=== PATIENT | male | born 1985 | race Two or more races ===

== ENCOUNTER 2016-11-04 20:02 | Emergency (ER) | payer OTHER ==
[2016-11-04 20:11] VITALS: BP 94/56; PULSE 80; TEMP 98.3; BMI 25.1
[2016-11-04] MEDS ORDERED: METHOCARBAMOL 500 MG TABLET PO ONE (20:42)
[2016-11-04] MEDS ORDERED: IBUPROFEN 600 MG TABLET (FP) PO ONE ×2 (20:42→21:06)
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
[2016-11-04] MEDS ORDERED: METHOCARBAMOL 500 MG TABLET ONE (21:06)
== END 2016-11-04 23:03 | disposition home or self-care (01) ==
LOC: JER 20:02
DX: S13.4XXA Sprain of ligaments of cervical spine, initial encounter (principal); M25.552 Pain in left hip; V43.52XA Car driver injured in collision with other type car in traffic accident, initial encounter; Y92.414 Local residential or business street as the place of occurrence of the external cause; Y93.89 Activity, other specified
CPT/HCPCS: 70450-TC; 72125-TC; 72131-TC; 99283-25

== ENCOUNTER 2016-12-24 17:38 | Emergency (ER) | payer SELFPAY ==
[2016-12-24 17:51] VITALS: BP 138/76; PULSE 85; TEMP 98; BMI 24.4
--- NOTE | 2016-12-24 18:04 | PDOC ---
History of Present Illness - General Chief Complaint: Urinary Problem Stated Complaint: PAIN, ACUTE Time Seen by Provider: 12/24/16 17:58 History Source: Patient Exam Limitations: No Limitations Past History - Travel Traveled outside of the country in the last 30 days: No Close contact w/someone who was outside of country & ill: No - Past Medical History Allergies/Adverse Reactions: Allergies Allergy/AdvReac Type Severity Reaction Status Date / Time clindamycin Allergy Verified 12/24/16 17:51 Home Medications: Ambulatory Orders NK [No Known Home Medication] 11/04/16 Asthma: Yes Suicide Attempt (Hx): No - Psycho/Social/Smoking Cessation Hx Anxiety: No Suicidal Ideation: No Smoking Status: No Smoking History: Never smoked Have you smoked in the past 12 months: No Number of Cigarettes Smoked Daily: 3 Information on smoking cessation initiated: No 'Breaking Loose' booklet given: 04/19/14 Hx Alcohol Use: No Drug/Substance Use Hx: Yes (marijuana) Substance Use Type: None Review of Systems - Review of Systems Able to Perform ROS?: Yes Is the patient limited Luxem[place]ish proficient: No *Physical Exam - Vital Signs Last Vital Signs Temp Pulse Resp BP Pulse Ox 98.0 F 85 18 138/76 100 12/24/16 17:44 12/24/16 17:44 12/24/16 17:44 12/24/16 17:44 12/24/16 17:44
[2016-12-24] MEDS ORDERED: AZITHROMYCIN 1 GM PACKET PO ONE (18:22)
[2016-12-24] MEDS ORDERED: AZITHROMYCIN 1 GM PACKET ONE (18:23)
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
[2016-12-26 09:22] LABS: HIV 1 & 2 AB NEGATIVE; HIV 1 AGp24 NEGATIVE
== END 2016-12-24 18:46 | disposition home or self-care (01) ==
LOC: JERFT 17:38
DX: Z20.2 Contact with and (suspected) exposure to infections with a predominantly sexual mode of transmission (principal)
CPT/HCPCS: 36415; 86593; 87389; 87491; 87591; 99281-25

== ENCOUNTER 2017-06-27 11:18 | Emergency (ER) | payer SELFPAY ==
[2017-06-27 11:25] VITALS: BP 125/70; PULSE 85; BMI 26.3
--- NOTE | 2017-06-27 12:16 | PDOC ---
History of Present Illness - General Chief Complaint: Pain Stated Complaint: NAUSEA/VOMITING Time Seen by Provider: 06/27/17 12:10 - History of Present Illness Initial Comments: 06/27/17 12:47 Mr. Oliveros is a 32 yo male w/ no significant pmh who presents to the Emergency Room complaining of a 2 day history of nausea, vomiting, diarrhea, and abdominal pain. He reports this started 2 days ago when he woke up and began with a small episode of non-bloody diarrhea. He felt fine most of the day but then started to have increased nausea with vomiting and more severe diarrhea. Mr. Oliveros reports he has vomited 20 times now overnight with continued diarrhea and that both his diarrhea and vomit smell exceptionally bad. Additionally, he says he has been unreasonably hungry over this time period regardless of eating. Allergies: Clindamycin Past History - Past Medical History Allergies/Adverse Reactions: Allergies Allergy/AdvReac Type Severity Reaction Status Date / Time clindamycin Allergy Verified 06/27/17 11:25 Home Medications: Ambulatory Orders Ondansetron HCl [Zofran] 4 mg PO Q6H PRN #8 tablet 06/27/17 Asthma: Yes COPD: No - Suicide/Smoking/Psychosocial Hx Smoking Status: No Smoking History: Never smoked Have you smoked in the past 12 months: No Number of Cigarettes Smoked Daily: 3 Information on smoking cessation initiated: No 'Breaking Loose' booklet given: 06/27/17 Hx Alcohol Use: No Drug/Substance Use Hx: No Substance Use Type: Alcohol, Marijuana Review of Systems - Review of Systems Comments:: 06/27/17 13:56 GENERAL/CONSTITUTIONAL: No fever or chills. No weakness. HEAD, EYES, EARS, NOSE AND THROAT: No change in vision. No ear pain or discharge. No sore throat. CARDIOVASCULAR: No chest pain or shortness of breath RESPIRATORY: No cough, wheezing, or hemoptysis. GASTROINTESTINAL: +Nausea with vomiting as described with coinciding diarrhea ( non-bloody). Also reported abdominal pain over the last day. GENITOURINARY: No dysuria, frequency, or change in urination. MUSCULOSKELETAL: No joint or muscle swelling or pain. No neck or back pain. SKIN: No rash NEUROLOGIC: No headache, vertigo, loss of consciousness, or change in strength/ sensation. ENDOCRINE: No increased thirst. No abnormal weight change HEMATOLOGIC/LYMPHATIC: No anemia, easy bleeding, or history of blood clots. ALLERGIC/IMMUNOLOGIC: No hives or skin allergy. *Physical Exam - Vital Signs Last Vital Signs Temp Pulse Resp BP Pulse Ox 85 18 125/70 99 06/27/17 11:22 06/27/17 11:22 06/27/17 11:22 06/27/17 11:22 - Physical Exam Comments: 06/27/17 13:57 GENERAL: Awake, alert, and fully oriented, in no acute distress HEAD: No signs of trauma, normocephalic, atraumatic EYES: PERRLA, EOMI, sclera anicteric, conjunctiva clear ENT: Auricles normal inspection, hearing grossly normal, nares patent, oropharynx clear without exudates. Moist mucosa NECK: Normal ROM, supple, no lymphadenopathy, JVD, or masses LUNGS: No distress, speaks full sentences, clear to auscultation bilaterally HEART: Regular rate and rhythm, normal S1 and S2, no murmurs, rubs or gallops, peripheral pulses normal and equal bilaterally. ABDOMEN: +Tender to palpation in bilateral lower quadrants. Soft, normoactive bowel sounds. No guarding, no rebound. No masses EXTREMITIES: Normal inspection, Normal range of motion, no edema. No clubbing or cyanosis. NEUROLOGICAL: Cranial nerves II through XII grossly intact. Normal speech, normal gait, no focal sensorimotor deficits SKIN: Warm, Dry, normal turgor, no rashes or lesions noted. ED Treatment Course - LABORATORY CBC & Chemistry Diagram: 06/27/17 12:21 06/27/17 12:21 Medical Decision Making - Medical Decision Making 06/27/17 13:58 Mr. Oliveros reports n/v/d for the past 2 days, with some relief after 1L fluids with zofran + pepcid. Currently resting comfortably, abdominal pain resolved as well. Believe this to be viral illness in etiology, will discharge with instructions for self care and to follow-up as needed. 06/27/17 15:03 Patient experienced another episode of vomiting, was given reglan for continued treatment. Pain now passed PO challenge and able to be discharged. Rx for zofran sent to pt's pharmacy, patient will return if n/v not controllable with zofran and continued. Pt verbalized understanding and agrees with plan. *DC/Admit/Observation/Transfer Diagnosis at time of Disposition: Viral gastroenteritis - Discharge Dispostion Disposition: HOME - Prescriptions Prescriptions: Ondansetron HCl [Zofran] 4 mg PO Q6H PRN #8 tablet PRN Reason: Nausea And/Or Vomiting - Referrals - Patient Instructions Printed Discharge Instructions: DI for Viral Gastroenteritis -- Adult Additional Instructions: Please return if any increase in nausea, vomiting, new or continued pain, or other concerning symptoms. - Post Discharge Activity
[2017-06-27] MEDS ORDERED: SODIUM CHLORIDE 1,000 ML IV STA (12:17)
[2017-06-27] MEDS ORDERED: ONDANSETRON 4 MG/2 ML VIAL IVPUSH ONE (12:17)
[2017-06-27] MEDS ORDERED: FAMOTIDINE 20 MG/50 ML IVPB 20 MG/50 ML MG IVPB ONE (12:29)
[2017-06-27] MEDS ORDERED: ONDANSETRON 4 MG/2 ML VIAL ONE (12:30)
[2017-06-27] MEDS ORDERED: FAMOTIDINE IV 20 MG/12 ML VIAL IVPUSH ONE (12:34)
--- NOTE | 2017-06-27 12:37 | PDOC ---
Attending Attestation - Resident Resident Name: Corey Fungorn - HPI HPI: 06/28/17 15:21 Pt presents to the ED complaining of nausea and vomiting and diarrhea. 06/28/17 18:21 - Physicial Exam PE: 06/28/17 18:21 agree with resident exam. Abdomen is non tender on my exam. Patient is well appearing. - Medical Decision Making 06/28/17 18:21 Labs checked to rule out pancreatic or billiary disease and are negative. Now tolerating PO. Will discharge home with follow up with PMD.
[2017-06-27 12:44] LABS: BASOPHIL 0.3 % (0-2.0); EOSINOPHIL 0.2 % (0-4.5); MCH 30.1 pg (25.7-33.7); MCHC 34.4 g/dl (32.0-35.9); MEAN CELL VOLUME 87.4 fl (80-96); MEAN PLT VOLUME 7.5 fl (7.5-11.1); NEUTROPHILS 87.3 % (42.8-82.8); PLATELET COUNT 380 K/MM3 (134-434); WHITE BLOOD COUNT 11.7 K/mm3 (4.0-10.0)
[2017-06-27 13:09] LABS: ALBUMIN 4.6 g/dl (3.4-5.0); ALK PHOS 88 U/L (45-117); ANION GAP 10 (8-16); CALCIUM 9.8 mg/dL (8.5-10.1); CO2 24 mmol/L (21-32); CREATININE 1.1 mg/dL (0.7-1.3); GLUCOSE,RANDOM 97 mg/dL (74-106); SGOT/AST 31 U/L (15-37); SGPT/ALT 92 U/L (12-78); TOT PROT 8.2 g/dl (6.4-8.2)
[2017-06-27] MEDS ORDERED: METOCLOPRAMIDE HCL INJECTION 10 MG/2 ML VIAL IVPUSH ONE (14:02)
[2017-06-27] MEDS ORDERED: METOCLOPRAMIDE HCL INJECTION 10 MG/2 ML VIAL ONE (14:05)
== END 2017-06-27 15:18 | disposition home or self-care (01) ==
LOC: JER 11:18
PROC: 3E033GC Introduction of Other Therapeutic Substance into Peripheral Vein, Percutaneous Approach (ICD-10-PCS; principal; 2017-06-27)
PROC: 3E0337Z Introduction of Electrolytic and Water Balance Substance into Peripheral Vein, Percutaneous Approach (ICD-10-PCS; 2017-06-27)
DX: A08.4 Viral intestinal infection, unspecified (principal)
CPT/HCPCS: 36415; 80053; 83605; 83690; 85025; 99283-25

== ENCOUNTER 2018-06-02 16:14 | Emergency (ER) | payer OTHER ==
[2018-06-02 16:29] VITALS: BP 122/83; PULSE 79; BMI 25.7
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
[2018-06-02] MEDS ORDERED: ACETAMINOPHEN 500 MG TABLET (FP) PO ONE (16:49)
[2018-06-02] MEDS ORDERED: ACETAMINOPHEN 500 MG TABLET (FP) ONE (16:56)
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
== END 2018-06-02 17:17 | disposition home or self-care (01) ==
LOC: JERFT 16:14
DX: S16.1XXA Strain of muscle, fascia and tendon at neck level, initial encounter (principal); S63.502A Unspecified sprain of left wrist, initial encounter; M54.5 Low back pain; V43.52XA Car driver injured in collision with other type car in traffic accident, initial encounter; Y92.414 Local residential or business street as the place of occurrence of the external cause; Y93.89 Activity, other specified; Y99.8 Other external cause status
CPT/HCPCS: 73110-TC-LR-FY; 99281-25

== ENCOUNTER 2019-02-05 00:41 | Emergency (ER) | payer OTHER ==
[2019-02-05 01:31] VITALS: BP 122/79; PULSE 76; TEMP 98.4; BMI 23.7
--- NOTE | 2019-02-05 01:42 | PDOC ---
*Physical Exam - Vital Signs Last Vital Signs Temp Pulse Resp BP Pulse Ox 98.4 F 76 17 122/79 98 02/05/19 00:41 02/05/19 00:41 02/05/19 00:41 02/05/19 00:41 02/05/19 00:41 Medical Decision Making - Medical Decision Making 02/05/19 01:41 Patient seen by the advanced practice provider under my direct supervision. Ancillary testing reviewed as necessary. I agree with plan as outlined by the advanced practice provider. *DC/Admit/Observation/Transfer Diagnosis at time of Disposition: Rash and nonspecific skin eruption - Discharge Dispostion Condition at time of disposition: Fair - Referrals - Patient Instructions - Post Discharge Activity
--- NOTE | 2019-02-05 02:00 | PDOC ---
History of Present Illness - General Chief Complaint: Rash Stated Complaint: RASH Time Seen by Provider: 02/05/19 01:34 History Source: Patient Exam Limitations: No Limitations Past History - Past Medical History Allergies/Adverse Reactions: Allergies Allergy/AdvReac Type Severity Reaction Status Date / Time clindamycin AdvReac Verified 02/05/19 01:30 Home Medications: Ambulatory Orders Cyclobenzaprine HCl [Flexeril 10 mg] 10 mg PO HS PRN #10 tablet 06/02/18 Ibuprofen [Motrin -] 600 mg PO TID #30 tablet 06/02/18 Asthma: Yes COPD: No - Suicide/Smoking/Psychosocial Hx Smoking Status: No Smoking History: Current some day smoker Have you smoked in the past 12 months: Yes Number of Cigarettes Smoked Daily: 3 Information on smoking cessation initiated: No 'Breaking Loose' booklet given: 06/27/17 Hx Alcohol Use: Yes Drug/Substance Use Hx: No Substance Use Type: Alcohol, Marijuana *Physical Exam - Vital Signs Last Vital Signs Temp Pulse Resp BP Pulse Ox 98.4 F 76 17 122/79 98 02/05/19 00:41 02/05/19 00:41 02/05/19 00:41 02/05/19 00:41 02/05/19 00:41 - Physical Exam General Appearance: No: Apparent Distress Respiratory/Chest: positive: Lungs Clear, Normal Breath Sounds. negative: Respiratory Distress Cardiovascular: positive: Regular Rhythm, Regular Rate, S1, S2. negative: Murmur Gastrointestinal/Abdominal: positive: Normal Bowel Sounds, Soft. negative: Tender, Distended, Guarding, Rebound Integumentary: positive: Rash (crusted maculopapular rash along chin) Medical Decision Making - Medical Decision Making 33 y/o M with no sig pmh presents with rash along chin x 4 years, intermittently. Rash is slightly pruritic and it is not painful. 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 Mentions the nasal swab done showed resistance to multiple antibiotics. Patient was discharged on Levaquin, which he is almost finished with but not noticing any improvement. States he has tried Bactroban and various other PO antibiotics in the past but nothing was effective for rash. Denies fever, sob, cp, abd pain, n/v/d, recent travel. Rash appears as impetigo However, seems to have already tried various PO antibiotics (unclear which ones) Advised to f/u with his ID and timber framer helper Also given number for another timber framer helper upon patient request 02/05/19 01:51 *DC/Admit/Observation/Transfer Diagnosis at time of Disposition: Rash and nonspecific skin eruption - Discharge Dispostion Disposition: HOME Condition at time of disposition: Fair Decision to Admit order: No - Referrals Referrals: Alexandria Lopez MD [Staff Physician] - Call tomorrow - Patient Instructions Printed Discharge Instructions: DI for Impetigo Additional Instructions: Thank you for choosing [facility]. It was a pleasure taking care of you. Please follow-up with your timber framer helper and infectious disease doctor for monitoring of your rash. Impetigo is contagious and can spread by touch Be sure to wash hands Return to the Emergency Department if your symptoms worsen or persist or have other concerning symptoms. - Post Discharge Activity
== END 2019-02-05 02:09 | disposition home or self-care (01) ==
LOC: JER 00:41
DX: L01.00 Impetigo, unspecified (principal)
CPT/HCPCS: 99281-25

== ENCOUNTER 2019-04-22 04:12 | Emergency (ER) | payer SELFPAY ==
--- NOTE | 2019-04-22 04:53 | PDOC ---
ED Treatment Course - LABORATORY CBC & Chemistry Diagram: 04/22/19 05:10 04/22/19 05:10 Medical Decision Making - Medical Decision Making 04/22/19 04:53 Patient seen by the advanced practice provider under my direct supervision. Ancillary testing reviewed as necessary. I agree with plan as outlined by the advanced practice provider. *DC/Admit/Observation/Transfer Diagnosis at time of Disposition: URI with cough and congestion - Discharge Dispostion Disposition: HOME Condition at time of disposition: Fair - Prescriptions Prescriptions: Albuterol Sulfate Inhaler - [Ventolin HFA Inhaler -] 1 - 2 inh PO QID PRN #1 inhaler PRN Reason: Cough Guaifenesin [Mucinex] 600 mg PO BID #20 tab.er.12h - Referrals - Patient Instructions Printed Discharge Instructions: Common Cold Additional Instructions: drink plenty of fluids take mucniex as prescribed use albuterol as needed for cough follow up with your doctor as soon as possible. return to the ER for any worsening symptoms - Post Discharge Activity Forms/Work/School Notes: Back to Work Discharge - Discharge Information Problems reviewed: Yes Clinical Impression/Diagnosis: URI with cough and congestion Condition: Fair Disposition: HOME - Additional Discharge Information Prescriptions: Albuterol Sulfate Inhaler - [Ventolin HFA Inhaler -] 1 - 2 inh PO QID PRN #1 inhaler PRN Reason: Cough Guaifenesin [Mucinex] 600 mg PO BID #20 tab.er.12h - Follow up/Referral - Patient Discharge Instructions Patient Printed Discharge Instructions: Common Cold Additional Instructions: drink plenty of fluids take mucniex as prescribed use albuterol as needed for cough follow up with your doctor as soon as possible. return to the ER for any worsening symptoms - Post Discharge Activity Work/Back to School Note: Back to Work
[2019-04-22 05:03] VITALS: BP 132/78; PULSE 70; TEMP 98; BMI 24.4
--- NOTE | 2019-04-22 05:14 | PDOC ---
History of Present Illness - General Chief Complaint: Shortness of Breath Stated Complaint: S.O.B. Time Seen by Provider: 04/22/19 04:49 History Source: Patient - History of Present Illness Initial Comments: 04/22/19 05:07 33 year old c/o shortness of breath since last night. + chills, nasal congestion. patient reports that he traveled from [place] yesterday. patient also reports s nonproductive cough. denies chest pain. denies NVD, diaphoresis, weakness. Past History - Past Medical History Allergies/Adverse Reactions: Allergies Allergy/AdvReac Type Severity Reaction Status Date / Time clindamycin AdvReac Verified 02/05/19 01:30 Home Medications: Ambulatory Orders Cyclobenzaprine HCl [Flexeril 10 mg] 10 mg PO HS PRN #10 tablet 06/02/18 Ibuprofen [Motrin -] 600 mg PO TID #30 tablet 06/02/18 Albuterol Sulfate Inhaler - [Ventolin HFA Inhaler -] 1 - 2 inh PO QID PRN #1 inhaler 04/22/19 Guaifenesin [Mucinex] 600 mg PO BID #20 tab.er.12h 04/22/19 Asthma: Yes COPD: No - Psycho Social/Smoking Cessation Hx Smoking Status: No Smoking History: Current some day smoker Have you smoked in the past 12 months: Yes Number of Cigarettes Smoked Daily: 3 Information on smoking cessation initiated: No 'Breaking Loose' booklet given: 06/27/17 Hx Alcohol Use: Yes (Social) Drug/Substance Use Hx: Yes (Marijuana) Substance Use Type: Alcohol, Marijuana Review of Systems - Review of Systems Able to Perform ROS?: Yes Is the patient limited [place]ican proficient: No Constitutional: Yes: Chills HEENTM: No: Symptoms Reported, See HPI, Eye Pain, Blurred Vision, Tearing, Recent change in vision, Double Vision, Cataracts, Ear Pain, Ocular Prothesis, Ear Discharge, Nose Pain, Nose Congestion, Tinnitus, Nose Bleeding, Hearing Loss , Throat Pain, Throat Swelling, Mouth Pain, Dental Problems, Difficulty Swallowing, Mouth Swelling, Other Respiratory: Yes: Cough, Shortness of Breath Cardiac (ROS): No: Symptoms Reported, See HPI, Chest Pain, Edema, Irregular Heart Rate, Lightheadedness, Palpitations, Syncope, Chest Tightness, Other ABD/GI: No: Symptoms Reported, See HPI, Abdominal Distended, Abd. Pain w/ defecation, Blood Streaked Bowels, Constipated, Diarrhea, Difficulty Swallowing , Nausea, Poor Appetite, Poor Fluid Intake, Rectal Bleeding, Vomiting, Indigestion, Abdominal cramping, Tarry Stools, Other *Physical Exam - Vital Signs Last Vital Signs Temp Pulse Resp BP Pulse Ox 98 F 70 17 132/78 97 04/22/19 04:12 04/22/19 04:12 04/22/19 04:12 04/22/19 04:12 04/22/19 04:12 - Physical Exam General Appearance: Yes: Mild Distress HEENT: positive: Nasal Congestion Respiratory/Chest: positive: Lungs Clear, Normal Breath Sounds, Other (dry cough ) Cardiovascular: positive: Regular Rhythm, Regular Rate. negative: Tachycardia Integumentary: positive: Normal Color, Dry, Warm Neurologic: positive: Fully Oriented, Alert, Normal Mood/Affect ED Treatment Course - LABORATORY CBC & Chemistry Diagram: 04/22/19 05:10 04/22/19 05:10 Progress Note - Progress Note Progress Note: A: cough , sob P: EKG: NSR chest xray Labs d-dimer Medical Decision Making - Medical Decision Making Medical Decision Making: patient improved aeration. feeling better. will d/.c home *DC/Admit/Observation/Transfer Diagnosis at time of Disposition: URI with cough and congestion - Discharge Dispostion Disposition: HOME Condition at time of disposition: Fair - Prescriptions Prescriptions: Albuterol Sulfate Inhaler - [Ventolin HFA Inhaler -] 1 - 2 inh PO QID PRN #1 inhaler PRN Reason: Cough Guaifenesin [Mucinex] 600 mg PO BID #20 tab.er.12h - Referrals - Patient Instructions Printed Discharge Instructions: Common Cold Additional Instructions: drink plenty of fluids take mucniex as prescribed use albuterol as needed for cough follow up with your doctor as soon as possible. return to the ER for any worsening symptoms - Post Discharge Activity Forms/Work/School Notes: Back to Work Discharge - Discharge Information Problems reviewed: Yes Clinical Impression/Diagnosis: URI with cough and congestion Condition: Fair Disposition: HOME - Additional Discharge Information Prescriptions: Albuterol Sulfate Inhaler - [Ventolin HFA Inhaler -] 1 - 2 inh PO QID PRN #1 inhaler PRN Reason: Cough Guaifenesin [Mucinex] 600 mg PO BID #20 tab.er.12h - Follow up/Referral - Patient Discharge Instructions Patient Printed Discharge Instructions: Common Cold Additional Instructions: drink plenty of fluids take mucniex as prescribed use albuterol as needed for cough follow up with your doctor as soon as possible. return to the ER for any worsening symptoms - Post Discharge Activity Work/Back to School Note: Back to Work
[2019-04-22] MEDS ORDERED: ALBUTEROL SO4 2.5/IPRATROPIUM 0.5 INH SOL 3 ML VIAL.NEB. NEB ONE ×2 (05:16→06:03)
[2019-04-22 05:33] LABS: BASO % 1.2 % (0-2.0); HEMATOCRIT 42.3 % (35.4-49); HEMOGLOBIN 14.9 GM/dL (11.7-16.9); LYMPH % 32.8 % (8-40); MCH 31.1 pg (25.7-33.7); MCHC 35.1 g/dl (32.0-35.9); MEAN CELL VOLUME 88.4 fl (80-96); MEAN PLT VOLUME 7.5 fl (7.5-11.1); MONO % 13.2 % (3.8-10.2); NEUT % 50.8 % (42.8-82.8); PLATELET COUNT 344 K/MM3 (134-434); RBC 4.79 M/mm3 (4.00-5.60); RDW 13.4 % (11.9-15.9); WHITE BLOOD COUNT 6.6 K/mm3 (4.0-10.0)
[2019-04-22 05:57] LABS: ALBUMIN 4.2 g/dl (3.4-5.0); BILIRUBIN,TOTAL 0.4 mg/dL (0.2-1); BLOOD UREA NITROGEN 13.8 mg/dL (7-18); CALCIUM 9.6 mg/dL (8.5-10.1); CREATININE 1.1 mg/dL (0.55-1.3); POTASSIUM 3.8 mmol/L (3.5-5.1); TOT PROT 7.5 g/dl (6.4-8.2)
[2019-04-22 06:03] LABS: INR 0.92 (0.83-1.09); PROTHROMBIN TIME (PATIENT) 10.9 SEC (9.7-13.0)
--- NOTE | 2019-04-22 10:44 | EKG ---
Test Reason : Blood Pressure : / mmHG Vent. Rate : 072 BPM Atrial Rate : 072 BPM P-R Int : 170 ms QRS Dur : 106 ms QT Int : 388 ms P-R-T Axes : 007 040 025 degrees QTc Int : 424 ms NORMAL SINUS RHYTHM NONSPECIFIC ST ABNORMALITY ABNORMAL ECG NO PREVIOUS ECGS AVAILABLE Confirmed by WILL GUIDRY, JENNIFER ([id number]) on 04/22/2019 10:43:45 AM Referred By: Confirmed By:JENNIFER SOLIS MD
== END 2019-04-22 06:58 | disposition home or self-care (01) ==
LOC: JER 04:12
PROC: 3E0F7GC Introduction of Other Therapeutic Substance into Respiratory Tract, Via Natural or Artificial Opening (ICD-10-PCS; principal; 2019-04-22)
DX: J06.9 Acute upper respiratory infection, unspecified (principal); J45.909 Unspecified asthma, uncomplicated; Z88.1 Allergy status to other antibiotic agents
CPT/HCPCS: 36415; 71046-TC-FY; 80053; 85025; 85379; 85610; 85730; 93005; 93010; 99283-25

== ENCOUNTER 2019-05-04 13:10 | Emergency (ER) | payer SELFPAY ==
[2019-05-04 13:15] VITALS: BP 112/83; PULSE 83; TEMP 98.3
--- NOTE | 2019-05-04 13:57 | PDOC ---
History of Present Illness - General Chief Complaint: Rectal Bleed Stated Complaint: RECTAL BLEEDING/HEMORROID Time Seen by Provider: 05/04/19 13:52 History Source: Patient - History of Present Illness Timing/Duration: reports: getting worse Past History - Past Medical History Allergies/Adverse Reactions: Allergies Allergy/AdvReac Type Severity Reaction Status Date / Time clindamycin AdvReac Verified 05/04/19 13:15 Home Medications: Ambulatory Orders Cyclobenzaprine HCl [Flexeril 10 mg] 10 mg PO HS PRN #10 tablet 06/02/18 Ibuprofen [Motrin -] 600 mg PO TID #30 tablet 06/02/18 Albuterol Sulfate Inhaler - [Ventolin HFA Inhaler -] 1 - 2 inh PO QID PRN #1 inhaler 04/22/19 Guaifenesin [Mucinex] 600 mg PO BID #20 tab.er.12h 04/22/19 Docusate Sodium [Colace] 100 mg PO DAILY #30 capsule 05/04/19 Hydrocortisone Acetate [Anusol Hc Suppository -] 25 mg RC DAILY #14 supp.rect Ibuprofen [Motrin -] 600 mg PO QID #28 tablet 05/04/19 Asthma: Yes COPD: No - Psycho Social/Smoking Cessation Hx Smoking Status: No Smoking History: Never smoked Have you smoked in the past 12 months: Yes Number of Cigarettes Smoked Daily: 3 Information on smoking cessation initiated: No 'Breaking Loose' booklet given: 06/27/17 Hx Alcohol Use: No Drug/Substance Use Hx: No Substance Use Type: Alcohol, Marijuana Abd/GI Specific PMHX - Complaint Specific PMHX Colitis: No Diverticulitis: No Gall Bladder Disease: No GERD: No Hepatitis: No Irritable Bowel Synd (IBS): No Pancreatitis: No GI Ulcer Disease: No Review of Systems - Review of Systems Constitutional: No: Chills, Fever ABD/GI: No: Constipated, Diarrhea, Nausea, Vomiting, Abdominal cramping *Physical Exam - Vital Signs Last Vital Signs Temp Pulse Resp BP Pulse Ox 98.3 F 83 19 112/83 100 05/04/19 13:13 05/04/19 13:13 05/04/19 13:13 05/04/19 13:13 05/04/19 13:13 - Physical Exam General Appearance: Yes: Appropriately Dressed. No: Apparent Distress HEENT: positive: Normal Voice Neck: positive: Supple Respiratory/Chest: negative: Respiratory Distress Gastrointestinal/Abdominal: positive: Soft. negative: Tender Rectal Exam: positive: other (Grade 2 hemorrhoid) Integumentary: positive: Dry, Warm Neurologic: positive: Fully Oriented, Alert, Normal Mood/Affect Medical Decision Making - Medical Decision Making 05/04/19 14:08 34-year-old male history of hemorrhoids here with worsening pain. Patient states pain started after frequent flights for work and sitting for prolonged periods. No bright red blood per rectum or constipation see exam Hemorrhoid -dc w/ pain control, anusol, colace and sitz bth To f/u with GI as needed Discharge - Discharge Information Problems reviewed: Yes Clinical Impression/Diagnosis: Hemorrhoids Qualifiers: Hemorrhoid type: second degree Qualified Code(s): K64.1 - Second degree hemorrhoids Condition: Good Disposition: HOME - Additional Discharge Information Prescriptions: Docusate Sodium [Colace] 100 mg PO DAILY #30 capsule Hydrocortisone Acetate [Anusol Hc Suppository -] 25 mg RC DAILY #14 supp.rect Ibuprofen [Motrin -] 600 mg PO QID #28 tablet - Follow up/Referral - Patient Discharge Instructions Patient Printed Discharge Instructions: DI for Hemorrhoids Additional Instructions: Take medications as directed Warm baths also helps to shrink hemorrhoids Do this in bathtub or purchase sitz bath over the counter and use as directed Please follow-up with Dr. Mortensen as needed - Post Discharge Activity
== END 2019-05-04 14:56 | disposition home or self-care (01) ==
LOC: JERFT 13:10
DX: K64.1 Second degree hemorrhoids (principal); J45.909 Unspecified asthma, uncomplicated; Z88.1 Allergy status to other antibiotic agents
CPT/HCPCS: 99281-25

== ENCOUNTER 2022-10-04 08:03 | Observation (INO) | payer SELFPAY ==
[2022-10-04 08:08] VITALS: BMI 25.7
[2022-10-04] MEDS ORDERED: ONDANSETRON 4 MG/2 ML VIAL IVPUSH ONE ×2 (08:16→09:01)
[2022-10-04] MEDS ORDERED: ONDANSETRON 4 MG/2 ML VIAL ONE ×2 (08:18→09:11)
[2022-10-04] MEDS ORDERED: LACTATED RINGERS SOLUTION 1,000 ML/1,000 ML INFUS.BAG IV SCH ×2 (08:30→09:15)
[2022-10-04 08:44] LABS: BASO % 0.4 % (0-2.0); EOS % 0.4 % (0-4.5); HEMATOCRIT 48.6 % (35.4-49); HEMOGLOBIN 16.7 GM/dL (11.7-16.9); LYMPH % 4.2 % (8-40); MCH 30.4 pg (25.7-33.7); MCHC 34.5 g/dl (32.0-35.9); MEAN CELL VOLUME 88.2 fl (80-96); MEAN PLT VOLUME 7.7 fl (7.5-11.1); MONO % 4.1 % (3.8-10.2); NEUT % 90.9 % (42.8-82.8); PLATELET COUNT 455 10^3/uL (134-434); RBC 5.51 M/mm3 (4.00-5.60); RDW 13.3 % (11.9-15.9); WHITE BLOOD COUNT 16.9 K/mm3 (4.0-10.0)
[2022-10-04] MEDS ORDERED: morphine CARPU-JECT 4 MG/1 ML DISP.SYRIN IVPUSH ONE (09:01)
[2022-10-04] MEDS ORDERED: DOXYCYCLINE HYCLATE 100 MG CAPSULE PO ONE ×2 (09:01→09:10)
[2022-10-04 09:05] LABS: ALBUMIN 4.4 g/dl (3.4-5.0); CALCIUM 10.2 mg/dL (8.5-10.1)
[2022-10-04 09:08] LABS: CREATININE 1.2 mg/dL (0.55-1.3)
[2022-10-04 09:10] LABS: BILIRUBIN,TOTAL 0.8 mg/dL (0.2-1); TOT PROT 8.4 g/dl (6.4-8.2)
[2022-10-04] MEDS ORDERED: morphine SULFATE 4 MG/ML VIAL ONE (09:10)
[2022-10-04] MEDS ORDERED: cefTRIAXone SODIUM 1 GM VIAL ONE (09:11)
[2022-10-04] MEDS ORDERED: LIDOCAINE HCL/PF 1% SDV 5ML VIAL ONE (09:11)
[2022-10-04 10:29] LABS: EPI CELLS 1 /uL (0-25.1); HYALINE CASTS 1 /uL (0-3.1); URINE APPEARANCE CLEAR; URINE BACTERIA 6 /uL (0-1359); URINE BILIRUBIN NEGATIVE (NEGATIVE); URINE COLOR YELLOW; URINE GLUCOSE (UA) NEGATIVE (NEGATIVE); URINE KETONE 2+ (NEGATIVE); URINE LEUK ESTERASE NEGATIVE (NEGATIVE); URINE NITRITE NEGATIVE (NEGATIVE); URINE PROTEIN TRACE (NEGATIVE); URINE RBC 21 /uL (0-23.9); URINE UROBILINOGEN 0.2 mg/dL (0.2-1.0); URINE WBC 9 /uL (0-25.8)
[2022-10-04] MEDS ORDERED: KETOROLAC TROMETHAMINE 15 MG/ML VIAL IVPUSH ONE (13:41)
[2022-10-04] MEDS ORDERED: KETOROLAC TROMETHAMINE 15 MG/ML VIAL ONE ×3 (13:41→20:45)
[2022-10-04] MEDS ORDERED: SODIUM CHLORIDE 1,000 ML IV STA (13:47)
[2022-10-04 14:06] LABS: COCAINE, UR NEGATIVE (NEGATIVE); OPIATES, URI NEGATIVE (NEGATIVE); URINE BARBITURATES NEGATIVE (NEGATIVE)
[2022-10-04 14:13] LABS: METHADONE, UR NEGATIVE (NEGATIVE); PHENCYCLIDINE,URINE NEGATIVE (NEGATIVE); URINE AMPHETAMINES NEGATIVE (NEGATIVE); URINE BENZODIAZEPINES NEGATIVE (NEGATIVE)
[2022-10-04] MEDS ORDERED: SODIUM CHLORIDE 1,000 ML IV SCH (15:00)
[2022-10-04] MEDS ORDERED: CEFTRIAXONE 500 MG in DEXTROSE 5%-WATER - 50 ML IVPB ONE (15:22)
[2022-10-04] MEDS ORDERED: PANTOPRAZOLE SODIUM 40 MG VIAL IVPUSH SCH (16:30)
[2022-10-04] MEDS ORDERED: CEFTRIAXONE 1 GM/50 ML BAG ONE (16:36)
[2022-10-04] MEDS ORDERED: PANTOPRAZOLE SODIUM 40 MG VIAL ONE (17:41)
[2022-10-04] MEDS ORDERED: ACETAMINOPHEN INJECTION 100 ML IVPB ONE ×2 (17:41→23:30)
[2022-10-04] MEDS: ACETAMINOPHEN 1000 MG/100 ML BAG IVPB PRN ×2 (17:49→23:34)
[2022-10-04] MEDS: KETOROLAC TROMETHAMINE 15 MG/ML VIAL IVPUSH PRN (20:49)
[2022-10-05] MEDS ORDERED: KETOROLAC TROMETHAMINE 15 MG/ML VIAL ONE (03:18)
[2022-10-05] MEDS: KETOROLAC TROMETHAMINE 15 MG/ML VIAL IVPUSH PRN (03:24)
[2022-10-05] MEDS ORDERED: hydrOXYzine PAMOATE 25 MG CAPSULE (FP) PO ONE ×2 (03:30→05:00)
[2022-10-05 05:07] VITALS: PULSE 84
[2022-10-05 06:48] LABS: BASO % 0.2 % (0-2.0); EOS % 0.1 % (0-4.5); HEMATOCRIT 40.6 % (35.4-49); HEMOGLOBIN 14.1 GM/dL (11.7-16.9); LYMPH % 6.9 % (8-40); MCH 30.5 pg (25.7-33.7); MCHC 34.6 g/dl (32.0-35.9); MEAN CELL VOLUME 88.1 fl (80-96); MEAN PLT VOLUME 7.6 fl (7.5-11.1); MONO % 8.6 % (3.8-10.2); NEUT % 84.2 % (42.8-82.8); PLATELET COUNT 315 10^3/uL (134-434); RBC 4.61 M/mm3 (4.00-5.60); RDW 13.5 % (11.9-15.9); WHITE BLOOD COUNT 7.2 K/mm3 (4.0-10.0)
[2022-10-05 07:06] LABS: BLOOD UREA NITROGEN 12.9 mg/dL (7-18)
[2022-10-05 07:09] LABS: CREATININE 0.9 mg/dL (0.55-1.3)
[2022-10-05 07:11] LABS: BILIRUBIN,TOTAL 0.6 mg/dL (0.2-1)
[2022-10-05 07:23] LABS: ALBUMIN 3.2 g/dl (3.4-5.0); CALCIUM 8.4 mg/dL (8.5-10.1); TOT PROT 6.3 g/dl (6.4-8.2)
[2022-10-05] MEDS ORDERED: ENOXAPARIN NA (PORCINE) 40 MG/0.4 ML DISP.SYRIN SQ SCH (10:00)
[2022-10-05] MEDS ORDERED: CEFTRIAXONE 1 GM in DEXTROSE 5%-WATER - 50 ML IVPB SCH (10:00)
[2022-10-05 10:08] VITALS: BP 130/89; RESP 18; TEMP 98.5
== END 2022-10-05 10:50 | disposition home or self-care (01) ==
LOC: JER 08:03 → JERBED 12:11 → UNDOADMOB 23:11
PROVIDERS: ADMIT Internal Medicine
PROC: 3E033NZ Introduction of Analgesics, Hypnotics, Sedatives into Peripheral Vein, Percutaneous Approach (ICD-10-PCS; principal; 2022-10-04)
PROC: 3E02329 Introduction of Other Anti-infective into Muscle, Percutaneous Approach (ICD-10-PCS; 2022-10-04)
PROC: 3E03329 Introduction of Other Anti-infective into Peripheral Vein, Percutaneous Approach (ICD-10-PCS; 2022-10-04)
PROC: 3E0333Z Introduction of Anti-inflammatory into Peripheral Vein, Percutaneous Approach (ICD-10-PCS; 2022-10-04)
PROC: 3E0337Z Introduction of Electrolytic and Water Balance Substance into Peripheral Vein, Percutaneous Approach (ICD-10-PCS; 2022-10-04)
PROC: 3E033GC Introduction of Other Therapeutic Substance into Peripheral Vein, Percutaneous Approach (ICD-10-PCS; 2022-10-04)
DX: K52.9 Noninfective gastroenteritis and colitis, unspecified (principal); D72.829 Elevated white blood cell count, unspecified; R36.9 Urethral discharge, unspecified; A60.00 Herpesviral infection of urogenital system, unspecified; K76.0 Fatty (change of) liver, not elsewhere classified; Z29.8 Encounter for other specified prophylactic measures; F17.210 Nicotine dependence, cigarettes, uncomplicated; Z88.1 Allergy status to other antibiotic agents
CPT/HCPCS: 36415; 74019-TC-FY; 74177-TC; 80053; 80307; 81003; 83690; 83986; 84132; 84439; 84443; 85025; 86705; 86708; 86803; 87045; 87046; 87086; 87205; 87324; 87449; 87491; 87517; 87591; 99285-25; C9803-CS; G0378; U0003; U0005

== ENCOUNTER 2024-02-12 04:16 | Emergency (ER) | payer SELFPAY ==
[2024-02-12 04:21] VITALS: BP 152/92; PULSE 77; RESP 18; TEMP 98.1; BMI 24.4
[2024-02-12] MEDS ORDERED: KETOROLAC TROMETHAMINE 15 MG/ML VIAL ONE ×2 (04:48→04:51)
[2024-02-12] MEDS ORDERED: LIDOCAINE 4% PATCH TP ONE (04:48)
[2024-02-12] MEDS: KETOROLAC TROMETHAMINE 30 MG/1 ML VIAL IM ONE (04:54)
[2024-02-12] MEDS: LIDOCAINE 5% TOPICAL PATCH TP ONE (04:54)
[2024-02-12] MEDS: ACETAMINOPHEN 500 MG TABLET (FP) PO ONE (06:07)
[2024-02-12] MEDS ORDERED: LIDOCAINE PATCH REMOVAL MC SCH (22:00)
== END 2024-02-12 06:08 | disposition home or self-care (01) ==
LOC: JER 04:16
PROC: 3E0133Z Introduction of Anti-inflammatory into Subcutaneous Tissue, Percutaneous Approach (ICD-10-PCS; principal; 2024-02-12)
DX: M54.50 Low back pain, unspecified (principal)
CPT/HCPCS: 99284-25